=== PATIENT | male | born 1965 | race African-American/Black ===

== ENCOUNTER 2018-09-11 01:53 | Emergency (ER) | payer MEDICAID ==
[~2018-09-11] VITALS: Ht 182.9 cm; Wt 90.0 kg
[2018-09-11] MEDS ORDERED: MORPHINE SULFATE 4 MG/ML CPJ (NOT FOR IM USE) IV STA (06:26)
[2018-09-11] MEDS ORDERED: ONDANSETRON HCL 4MG/2ML INJ IV STA (06:26)
[2018-09-11 09:10] LABS: BASOPHILS % 0.3 % (0.0-2.0); EOSINOPHILS % 1.8 % (0.0-5.0); HEMATOCRIT. 44.7 % (42.0-52.0); HEMOGLOBIN. 14.8 g/dL (14.0-18.0); LYMPHOCYTES % 23.2 % (20.0-50.0); MEAN CORPUSCULAR HEMOGLOBIN 29.2 pg (28.0-32.0); MEAN CORPUSCULAR VOLUME 88.6 fL (80.0-94.0); MEAN PLATELET VOLUME 7.4 fl (7.4-10.4); MONOCYTES % 12.6 % (2.0-8.0); NEUTROPHILS % 62.1 % (40.0-76.0); PLATELET 159 x1000/uL (130-400); RED BLOOD CELL COUNT 5.05 mill/uL (4.7-6.1); RED CELL DISTRIBUTION WIDTH 14.5 % (11.6-14.6)
[2018-09-11 09:16] LABS: CHLORIDE 108 mEq/L (98-107)
[2018-09-11 09:17] LABS: PARTIAL THROMBOPLASTIN TIME 27.2 sec (23.4-31.0); PROTHROMBIN TIME 10.5 sec (9.6-11.0)
[2018-09-11] MEDS ORDERED: KETOROLAC 15MG/ML VIAL IV ONE (09:45)
[2018-09-11 13:30] VITALS: BP 113/83
== END 2018-09-11 13:30 | disposition home or self-care (01) ==
LOC: ER 01:53
DX: S20.219A Contusion of unspecified front wall of thorax, initial encounter (principal); S09.8XXA Other specified injuries of head, initial encounter; G89.29 Other chronic pain; M54.9 Dorsalgia, unspecified; F20.9 Schizophrenia, unspecified; F17.200 Nicotine dependence, unspecified, uncomplicated; V43.52XA Car driver injured in collision with other type car in traffic accident, initial encounter; Y93.89 Activity, other specified; Y92.89 Other specified places as the place of occurrence of the external cause; Y99.8 Other external cause status
CPT/HCPCS: 36415; 70450; 71045; 80053; 84484; 85025; 85610; 85730; 93005; 96374; 96375; 99284; J1885; J2270; J2405; Z7610